=== PATIENT | female | born 1970 | race Caucasian/White ===

== ENCOUNTER 2016-10-22 17:05 | Emergency (ER) | payer MEDICAID, OTHER ==
[~2016-10-22] VITALS: Ht 147.3 cm; Wt 47.6 kg
[~2016-10-22 17:05] MED LIST: GABA-533 PO; LEVE750T4 PO; TOP25 PO
[2016-10-22 17:30] VITALS: BP_SYST 125
[2016-10-22] MEDS ORDERED: DIPHENHYDRAMINE HCL 25 MG CAPSULE PO ONE (18:45)
[2016-10-22] MEDS ORDERED: KETOROLAC TROMETHAMINE 30 MG VIAL IM ONE (18:45)
[2016-10-22 19:17] VITALS: BP_SYST 129
== END 2016-10-22 19:17 | disposition home or self-care (01) ==
LOC: SED 17:05
DX: G43.909 Migraine, unspecified, not intractable, without status migrainosus (principal); I10 Essential (primary) hypertension; F31.9 Bipolar disorder, unspecified; F41.9 Anxiety disorder, unspecified; Z86.73 Personal history of transient ischemic attack (TIA), and cerebral infarction without residual deficits
CPT/HCPCS: 96372; 99283; J1885; Q0163

== ENCOUNTER 2017-02-05 09:24 | Outpatient (CLI) | payer OTHER | END 2017-02-05 21:19 | disposition home or self-care (01) | LOC: SMA 09:24 | PROVIDERS: ATTEND Internal Medicine | DX: Z12.31 Encounter for screening mammogram for malignant neoplasm of breast (principal) | CPT/HCPCS: G0202 ==

== ENCOUNTER 2017-09-10 16:10 | Emergency (ER) | payer OTHER, MEDICAID ==
[~2017-09-10] VITALS: Ht 157.5 cm; Wt 59.0 kg
[2017-09-10 16:17] VITALS: BP_SYST 124
--- NOTE | 2017-09-10 16:21 | NUR ---
Patient triaged and placed in waiting room. VSS and patient appears in no acute distress at this time. Accompanied by TWO SONS, awaiting available bed, and MD notified of need for MSE.
--- NOTE | 2017-09-10 18:16 | NUR ---
Patient to ER bed 07 to gown for evaluation. Side rails up. Report given to NASH Suero
--- NOTE | 2017-09-10 18:20 | NUR ---
pt complains of having 2 seizures today. the First one was at noon and second seizure was a few hours before coming to ED. Pt states with her seizure, she hit her head. Noted bump to back of right head. Pt denies N/V. Pt also complians of severe headache. Pt is laying in bed with lights off and sunglasses on. No other injuries/complaints per patient or noted. at bedside.
--- NOTE | 2017-09-10 18:26 | NUR ---
ER Dr. Salazar at bedside examining patient.
[2017-09-10] MEDS ORDERED: ONDANSETRON HCL 4 MG/2 ML VIAL IM ONE (18:30)
[2017-09-10] MEDS ORDERED: KETOROLAC TROMETHAMINE 60 MG/2 ML VIAL IM ONE (18:30)
[2017-09-10 18:40] LABS: BILIRUBIN,URINE NEGATIVE (NEGATIVE); BLOOD, URINE NEGATIVE (NEGATIVE); CLARITY/URINE CLEAR (CLEAR); COLOR,URINE YELLOW (YELLOW); GLUCOSE,URINE NEGATIVE (NEGATIVE); KETONES,URINE NEGATIVE (NEGATIVE); LEUKOCYTE ESTERASE ,URINE NEGATIVE (NEGATIVE); NITRITE, URINE NEGATIVE (NEGATIVE); PH,URINE 5.5 (5.0-8.0); PROTEIN URINE NEGATIVE (NEGATIVE); UROBILINOGEN,URINE 0.2 (0.2-1.0)
--- NOTE | 2017-09-10 19:28 | NUR ---
Report given to NASH O[place]. All care endorsed.
[2017-09-10] MEDS ORDERED: NACL 0.9% 1,000 ML IV ONE (20:36)
[2017-09-10] MEDS ORDERED: ONDANSETRON HCL 4 MG/2 ML VIAL IVP ONE (20:45)
[2017-09-10] MEDS ORDERED: MORPHINE 4 MG/ML INJ. SYRINGE IVP ONE ×2 (20:45→22:15)
[2017-09-10 21:13] LABS: PROTHROMBIN TIME 10.2 SECS (9.5-12.5)
[2017-09-10 21:20] LABS: CALCIUM 8.4 mg/dL (8.4-11.0); CREATININE 0.75 mg/dL (0.55-1.30); POTASSIUM 3.3 mmol/L (3.5-5.1)
[2017-09-10 21:21] LABS: BASOPHILS # (AUTO) 0.1 K/uL (0.0-0.2); BASOPHILS % (AUTO) 0.8 % (0.0-2.0); EOSINOPHILS # (AUTO) 0.2 K/uL (0.0-0.4); EOSINOPHILS % (AUTO) 2.1 % (0.0-4.0); HEMATOCRIT 36.5 % (36-48); HEMOGLOBIN 12.7 g/dL (12.0-16.0); LYMPHOCYTES # (AUTO) 1.6 K/uL (1.0-5.5); LYMPHOCYTES % (AUTO) 22.2 % (20.5-51.5); MEAN CORPUSCULAR HEMOGLOBIN 30 pg (27-31); MEAN CORPUSCULAR HGB CONC 35 % (32-36); MEAN CORPUSCULAR VOLUME 86 fL (79.0-98.0); MONOCYTES # (AUTO) 0.7 K/uL (0.0-1.0); MONOCYTES % (AUTO) 9.9 % (1.7-9.3); NEUTROPHILS # (AUTO) 4.7 K/uL (1.8-7.7); PLATELET COUNT (AUTO) 349 K/uL (130-430); RED BLOOD CELL COUNT(AUTO) 4.24 MIL/uL (4.2-6.2); RED CELL DISTRIBUTION WIDTH 11.9 % (9.0-15.0); WHITE BLOOD COUNT (AUTO) 7.3 K/uL (4.8-10.8)
--- NOTE | 2017-09-10 21:24 | NUR ---
# 20 gauge angiocath placed to R HAND. Use of asceptic technique. Opsite placed over site. Blood return noted. Blood for lab drawn from site. Flushed with 10 cc of normal saline. No evidence of infiltration noted. Patient tolerated well.
[2017-09-10 21:25] LABS: ALBUMIN 3.8 g/dL (3.4-4.8); TOTAL BILIRUBIN 1.1 mg/dL (0.0-1.0)
[2017-09-10] MEDS ORDERED: DIPHENHYDRAMINE INJ 50 MG/ML VIAL IVP ONE (22:15)
--- NOTE | 2017-09-10 22:18 | NUR ---
REPORT GIVEN TO MY RN TO ASSUME CARE.
--- NOTE | 2017-09-10 22:20 | NUR ---
recv report from NASH Sweeney; pt resting in bed with family at bedside; reports 9/10 head pain at back of head (point of impact sustained after fall); VSS BP 116/64 P79 [id number]
--- NOTE | 2017-09-10 23:00 | NUR ---
10 pain to head improved from earlier; pt feels stable to amb to BR; family at bedside; will continue to monitor
--- NOTE | 2017-09-10 23:29 | NUR ---
endorsed care to NASH Brewster; pt resting comfortably in bed;family at bedside
[2017-09-11] MEDS ORDERED: NACL 0.9% 1,000 ML IV ONE (00:27)
[2017-09-11] MEDS ORDERED: MORPHINE 4 MG/ML INJ. SYRINGE IVP ONE (00:30)
[2017-09-11] MEDS ORDERED: ONDANSETRON HCL 4 MG/2 ML VIAL IVP ONE (00:30)
--- NOTE | 2017-09-11 01:02 | NUR ---
Medicated per md orders. Patient tolerated well. will continue to monitor.
[2017-09-11 01:12] LABS: AMYLASE 24 U/L (0-100); LIPASE 123 U/L (73-393)
[2017-09-11 02:13] VITALS: BP_SYST 128
--- NOTE | 2017-09-11 02:13 | NUR ---
Patient given written and verbal discharge instructions and verbalizes understanding. ER MD discussed with patient the results and treatment provided. Patient in stable condition. ID arm band removed. IV catheter removed intact and dressing applied, no active bleeding. Rx of Zofran and tylenol with codeine given. Patient educated on pain management and to follow up with PMD in 2-3 days. Pain Scale 0/10 Opportunity for questions provided and answered. Medication side effect fact sheet provided.
== END 2017-09-11 02:13 | disposition home or self-care (01) ==
LOC: SED 16:10
DX: G43.909 Migraine, unspecified, not intractable, without status migrainosus (principal); F41.9 Anxiety disorder, unspecified; F32.9 Major depressive disorder, single episode, unspecified; F31.9 Bipolar disorder, unspecified; I10 Essential (primary) hypertension; Z86.73 Personal history of transient ischemic attack (TIA), and cerebral infarction without residual deficits; Z90.49 Acquired absence of other specified parts of digestive tract; Z79.899 Other long term (current) drug therapy; R51 Headache
CPT/HCPCS: 36415; 70450; 71045; 80053; 81003; 81025; 82150; 82550; 83690; 85025; 85610; 85730; 96361; 96372; 96374; 96375; 96376; 99285; J1200; J1885; J2270 ×2; J2405 ×2; J7030; 96366

== ENCOUNTER 2018-05-24 09:08 | Outpatient (CLI) | payer OTHER | END 2018-05-25 14:28 | disposition home or self-care (01) | LOC: SMA 09:08 | PROVIDERS: ATTEND Internal Medicine | DX: Z12.31 Encounter for screening mammogram for malignant neoplasm of breast (principal) | CPT/HCPCS: 77067 ==

== ENCOUNTER 2018-12-30 10:30 | Outpatient (CLI) | payer OTHER ==
[2018-12-30 13:53] LABS: ALBUMIN 4.2 g/dL (3.4-4.8); CALCIUM 8.8 mg/dL (8.4-11.0); CREATININE 0.67 mg/dL (0.55-1.30); POTASSIUM 4.6 mmol/L (3.5-5.1); TOTAL BILIRUBIN 0.3 mg/dL (0.0-1.0)
== END 2018-12-30 21:09 | disposition home or self-care (01) ==
LOC: SLB 10:30
PROVIDERS: ATTEND Psychiatry & Neurology Neurology
DX: G43.719 Chronic migraine without aura, intractable, without status migrainosus (principal); R41.3 Other amnesia
CPT/HCPCS: 36415; 80053

== ENCOUNTER 2019-01-23 18:57 | Emergency (ER) | payer OTHER ==
[~2019-01-23] VITALS: Ht 144.8 cm; Wt 73.9 kg
[2019-01-23 19:13] VITALS: BP_SYST 140
--- NOTE | 2019-01-23 20:47 | NUR ---
Patient to ER bed 4 to gown for evaluation. Side rails up. Report given to Yumiko CAO.
--- NOTE | 2019-01-23 21:00 | NUR ---
Patient AOx4, ambulatory, presents to ED with complaint of migraine POLANCO 10/10 x3 days. Patient reports sensitive to noise and light. Patient reports she medicates with Gabapentin 400mg TID for migraines. Patient has hx of chronic migraines and seizures.
--- NOTE | 2019-01-23 22:02 | NUR ---
ER MD Vallecillo at bedside for medical evaluation.
[2019-01-23] MEDS ORDERED: MORPHINE 2 MG/ML INJ. SYRINGE IVP ONE (22:15)
[2019-01-23] MEDS ORDERED: KETOROLAC TROMETHAMINE 15 MG VIAL IVP ONE (22:15)
[2019-01-23] MEDS ORDERED: NACL 0.9% 1,000 ML IV ONE (22:15)
[2019-01-23] MEDS ORDERED: METOCLOPRAMIDE HCL 10 MG/2 ML VIAL IVP ONE (22:15)
[2019-01-23] MEDS ORDERED: DEXAMETHASONE SOD PHOSPHATE 10 MG/ML VIAL IVP ONE (22:15)
--- NOTE | 2019-01-23 22:38 | NUR ---
# 20 gauge angiocath placed to left hand. Use of asceptic technique. Opsite placed over site. Blood return noted. Flushed with 10 cc of normal saline. No evidence of infiltration noted. Patient tolerated well.
--- NOTE | 2019-01-23 23:00 | NUR ---
No adverse reactions noted after medication administration. Will continue to monitor.
[2019-01-24 00:50] VITALS: BP_SYST 132
--- NOTE | 2019-01-24 00:50 | NUR ---
Patient given written and verbal discharge instructions and verbalizes understanding. ER MD discussed with patient the results and treatment provided. Patient in stable condition. ID arm band removed. IV catheter removed intact and dressing applied, no active bleeding. No Rx given. Patient educated on pain management and to follow up with PMD. Pain Scale 0/10. Opportunity for questions provided and answered.
== END 2019-01-24 00:50 | disposition home or self-care (01) ==
LOC: SED 18:57
DX: G43.909 Migraine, unspecified, not intractable, without status migrainosus (principal); I10 Essential (primary) hypertension; Z79.899 Other long term (current) drug therapy
CPT/HCPCS: 96374; 96375; 99283; J1100; J1885; J2270; J2765; J7030

== ENCOUNTER 2021-11-14 21:53 | Emergency (ER) | payer OTHER ==
[~2021-11-14] VITALS: Ht 144.8 cm; Wt 49.9 kg
[2021-11-14 22:03] VITALS: BP_SYST 128
--- NOTE | 2021-11-14 22:16 | NUR ---
Pt c/o upper neck pain x1.5 years and is requesting pain meds. Has appt with neurologist 11/19. Had MRI 03/26/21 showing C3-C4 posterior disc bulge. Pt states has "syncopal seizures" daily since 2011 and is seeing specialist. Hx head injury at age 17.
--- NOTE | 2021-11-14 22:30 | NUR ---
Report given to Meagan CAO, pt placed in [facility].
--- NOTE | 2021-11-14 22:45 | NUR ---
Received report from NASH Rowland; assuming care of patient at this time.
--- NOTE | 2021-11-14 22:48 | NUR ---
Patient presents to ED from home with c/o upper neck pain. Patient reports pain 9/10 at this time. Patient has hx of disc bulge on C3-C8 since 03/26/21 and chronic neck pain x1.5 years. Patient A/Ox4, VSS, ambulatory, resp even and unlabored. Patient accompanied by son. Nad noted at this time.
--- NOTE | 2021-11-14 22:55 | NUR ---
EDA Genao at bedside.
[2021-11-14] MEDS ORDERED: MORPHINE SULFATE 10 MG/ML VIAL IM ONE (23:15)
[2021-11-14] MEDS ORDERED: DIAZEPAM 5 MG TABLET (VALIUM) PO ONE (23:15)
--- NOTE | 2021-11-14 23:30 | NUR ---
Patient sitting upright in chair with son at side. Nad noted at this time.
[2021-11-15] MEDS ORDERED: PERC10 PO (00:04)
[2021-11-15 00:11] VITALS: BP_SYST 128
--- NOTE | 2021-11-15 00:11 | NUR ---
Patient given written and verbal discharge instructions and verbalizes understanding. ER MD discussed with patient the results and treatment provided. Patient in stable condition. ID arm band removed Rx of OXYCODONE HCL/ACETAMINOPHEN given. Patient educated on pain management and to follow up with PMD. Pain Scale 3/10. Opportunity for questions provided and answered. Medication side effect fact sheet provided. Patient A/Ox4, VSS, ambulatory, resp even and unlabored. Nad noted at this time. Patient in stable condition and accompanied by sons upon discharge.
== END 2021-11-15 00:11 | disposition home or self-care (01) ==
LOC: SED 21:53
DX: M54.2 Cervicalgia (principal); Z79.899 Other long term (current) drug therapy
CPT/HCPCS: 99283; 96372; J2270